=== PATIENT | female | born 1990 | race Two or more races ===

== ENCOUNTER 2022-08-09 14:35 | Emergency (ER) | payer OTHER ==
[~2022-08-09] VITALS: Ht 162.6 cm; Wt 77.3 kg
[2022-08-09] MEDS ORDERED: NIRM1TAB PO (14:45)
[2022-08-09] MEDS ORDERED: LAMI25TA PO (14:56)
[2022-08-09] MEDS ORDERED: ZOLO50TA PO (14:56)
[2022-08-09 18:05] LABS: EOS # 0.1 10^3/uL (0.0-0.5); HEMATOCRIT 38.6 % (36.0-47.0); HEMOGLOBIN 12.8 g/dl (12.0-15.5); LYMPH % 39.4 % (24.0-44.0); MEAN CORPUSCULAR HEMOGLOBIN 27.4 pg (27.0-33.0); MEAN CORPUSCULAR HGB CONC 33.2 g/dl (32.0-36.5); MEAN CORPUSCULAR VOLUME 82.7 fl (80.0-96.0); MONO # 0.3 10^3/uL (0.0-0.8); MONO % 5.7 % (2.0-8.0); NEUTROPHILS # 2.7 10^3/uL (1.5-8.5); NEUTROPHILS % 53.7 % (36.0-66.0); PLATELET COUNT, AUTOMATED 196 10^3/uL (150-450); RED BLOOD COUNT 4.67 10^6/uL (4.00-5.40); WHITE BLOOD COUNT 5.1 10^3/uL (4.0-10.0)
[2022-08-09 18:46] LABS: ALT/SGPT 20 U/L (12-78); BILIRUBIN,TOTAL 0.3 MG/DL (0.2-1.0); BLOOD UREA NITROGEN 8 MG/DL (7-18); CALCIUM LEVEL 8.6 MG/DL (8.5-10.1); CARBON DIOXIDE LEVEL 28 MEQ/L (21-32); CHLORIDE LEVEL 108 MEQ/L (98-107); CREATININE FOR GFR 0.82 MG/DL (0.55-1.30); GLOMERULAR FILTRATION RATE > 60.0 (>60); GLUCOSE, FASTING 89 MG/DL (70-100); POTASSIUM SERUM 3.7 MEQ/L (3.5-5.1); SODIUM LEVEL 141 MEQ/L (136-145); TOTAL PROTEIN 7.2 GM/DL (6.4-8.2)
[2022-08-09 19:47] VITALS: BP 124/82
[2022-08-09 20:03] LABS: HEPATITIS B CORE ANTIBODY IGM NEGATIVE (NEGATIVE); HEPATITIS B SURFACE ANTIGEN NEGATIVE (NEGATIVE); HEPATITIS C VIRUS ABY INDEX < 0.0 INDEX (<0.8)
== END 2022-08-09 19:49 | disposition home or self-care (01) ==
LOC: M ED 14:35
DX: R10.84 Generalized abdominal pain (principal); R19.7 Diarrhea, unspecified; Z86.16 Personal history of COVID-19; R51.9 Headache, unspecified; F60.3 Borderline personality disorder; Z80.0 Family history of malignant neoplasm of digestive organs; Z79.899 Other long term (current) drug therapy

== ENCOUNTER 2022-10-22 13:35 | Emergency (ER) | payer OTHER ==
[~2022-10-22] VITALS: Ht 162.6 cm; Wt 77.2 kg
[~2022-10-22 13:35] MED LIST: LAMI25TA PO; NIRM1TAB PO; ZOLO50TA PO
[2022-10-22] MEDS ORDERED: VENL37.598 (13:42)
[2022-10-22] MEDS ORDERED: LORazepam 1 MG TAB PO STA (14:19)
[2022-10-22 14:41] LABS: HEMATOCRIT 41.1 % (36.0-47.0); HEMOGLOBIN 13.5 g/dl (12.0-15.5); MEAN CORPUSCULAR HEMOGLOBIN 27.1 pg (27.0-33.0); MEAN CORPUSCULAR HGB CONC 32.8 g/dl (32.0-36.5); MEAN CORPUSCULAR VOLUME 82.4 fl (80.0-96.0); PLATELET COUNT, AUTOMATED 162 10^3/uL (150-450); RED BLOOD COUNT 4.99 10^6/uL (4.00-5.40); WHITE BLOOD COUNT 8.6 10^3/uL (4.0-10.0)
[2022-10-22] MEDS ORDERED: ONDANSETRON 4MG ORAL DISINTEGRATING TAB PO ONE (14:55)
[2022-10-22 15:13] LABS: ETHYL ALCOHOL (ETHANOL) 0.003 % (0.000-0.010)
[2022-10-22 15:14] LABS: ACETAMINOPHEN LEVEL < 2.0 UG/ML (10.0-20.0); BILIRUBIN,DIRECT 0.3 MG/DL (<0.4)
[2022-10-22 15:15] LABS: ALBUMIN 4.5 G/DL (3.2-5.2); ALKALINE PHOSPHATASE 78 U/L (46-116); ALT/SGPT 27 U/L (7.0-40); AST/SGOT 23 U/L (<34); BILIRUBIN,TOTAL 0.8 MG/DL (0.3-1.2); BLOOD UREA NITROGEN 13 MG/DL (9-23); CALCIUM LEVEL 9.6 MG/DL (8.5-10.1); CARBON DIOXIDE LEVEL 26 MMOL/L (20-31); CHLORIDE LEVEL 104 MMOL/L (98-107); CREATININE FOR GFR 0.73 MG/DL (0.55-1.30); GLOMERULAR FILTRATION RATE > 60.0 (>60); GLUCOSE, FASTING 91 MG/DL (60-100); SALICYLATE LEVEL < 3.0 MG/DL (<30); SODIUM LEVEL 139 MMOL/L (136-145); TOTAL PROTEIN 7.6 G/DL (5.7-8.2)
[2022-10-22 15:16] LABS: THYROID STIMULATING HORMONE 0.727 uIU/ML (0.55-4.78)
[2022-10-22 15:56] LABS: AMPHETAMINES LEVEL URINE NEGATIVE (NEGATIVE); BARBITURATES URINE NEGATIVE (NEGATIVE); BENZODIAZEPINES URINE NEGATIVE (NEGATIVE); COCAINE METABOLITE URINE NEGATIVE (NEGATIVE); METHADONE URINE NEGATIVE (NEGATIVE); OPIATES URINE NEGATIVE (NEGATIVE); PHENCYCLIDINE URINE NEGATIVE (NEGATIVE)
[2022-10-22 15:58] LABS: CANNABINOIDS URINE POSITIVE (NEGATIVE)
[2022-10-22] MEDS ORDERED: HYDR-3363 PO ×2 (17:14→17:16)
[2022-10-22] MEDS ORDERED: ONDA4TAB6 PO ×2 (17:14→17:16)
[2022-10-22 17:52] VITALS: BP 122/69
== END 2022-10-22 17:55 | disposition home or self-care (01) ==
LOC: M ED 15:01
DX: F41.8 Other specified anxiety disorders (principal); F31.9 Bipolar disorder, unspecified; Z79.899 Other long term (current) drug therapy

== ENCOUNTER 2023-12-13 08:45 | Emergency (ER) | payer OTHER, SELFPAY ==
[~2023-12-13] VITALS: Ht 162.6 cm; Wt 73.9 kg
[~2023-12-13 08:45] MED LIST changes: +HYDR-3363 PO; +ONDA4TAB6 PO; +VENL37.598
[2023-12-13 12:06] LABS: URINE PREG TEST NEGATIVE (NEGATIVE)
[2023-12-13 13:13] LABS: Trichomonas vaginalis (AMP) NOT DETECTED (NEGATIVE)
[2023-12-13 13:36] LABS: GC DNA AMPLIFICATION NEGATIVE (NEGATIVE)
[2023-12-13] MEDS ORDERED: METR-265 PO (13:57)
[2023-12-13 14:08] VITALS: BP 125/79; TEMP 97.8; O2SAT 100
== END 2023-12-13 14:10 | disposition home or self-care (01) ==
LOC: M ED 08:45
DX: N76.0 Acute vaginitis (principal); A63.0 Anogenital (venereal) warts; F17.200 Nicotine dependence, unspecified, uncomplicated; Z87.42 Personal history of other diseases of the female genital tract; Z88.5 Allergy status to narcotic agent; Z88.6 Allergy status to analgesic agent; Z91.040 Latex allergy status; Z79.2 Long term (current) use of antibiotics

== ENCOUNTER 2024-08-11 18:34 | Emergency (ER) | payer MEDICAID, OTHER ==
[~2024-08-11] VITALS: Ht 162.6 cm; Wt 80.3 kg
[~2024-08-11 18:34] MED LIST changes: +METR-265 PO; +ONDA-282 PO; -ONDA4TAB6 PO
[2024-08-11] MEDS ORDERED: prenatal (18:41)
[2024-08-11 19:16] LABS: BASO % 0.1 % (0.0-1.0); EOS % 0.5 % (0.0-3.0); HEMATOCRIT 38.3 % (36.0-47.0); HEMOGLOBIN 13.1 g/dl (12.0-15.5); LYMPH # 2.2 10^3/uL (1.5-5.0); LYMPH % 26.8 % (24.0-44.0); MEAN CORPUSCULAR HEMOGLOBIN 27.5 pg (27.0-33.0); MEAN CORPUSCULAR HGB CONC 34.2 g/dl (32.0-36.5); MEAN CORPUSCULAR VOLUME 80.5 fl (80.0-96.0); MONO # 0.6 10^3/uL (0.0-0.8); MONO % 7.6 % (2.0-8.0); NEUTROPHILS # 5.4 10^3/uL (1.5-8.5); NEUTROPHILS % 64.9 % (36.0-66.0); PLATELET COUNT, AUTOMATED 225 10^3/uL (150-450); RED BLOOD COUNT 4.76 10^6/uL (4.00-5.40); WHITE BLOOD COUNT 8.3 10^3/uL (4.0-10.0)
[2024-08-11 19:52] LABS: ALBUMIN 4.3 G/DL (3.2-5.2); ALKALINE PHOSPHATASE 66 U/L (35-104); ALT/SGPT 18 U/L (7.0-40); AST/SGOT 14 U/L (<34); BILIRUBIN,DIRECT 0.2 MG/DL (<0.4); BILIRUBIN,TOTAL 0.6 MG/DL (0.3-1.2); BLOOD UREA NITROGEN 10 MG/DL (9-23); CALCIUM LEVEL 10.4 MG/DL (8.5-10.1); CARBON DIOXIDE LEVEL 27 MMOL/L (20-31); CHLORIDE LEVEL 104 MMOL/L (98-107); CREATININE FOR GFR 0.73 MG/DL (0.55-1.30); GLOMERULAR FILTRATION RATE > 60.0 (>60); GLUCOSE, FASTING 85 MG/DL (60-100); POTASSIUM SERUM 3.7 MMOL/L (3.5-5.1); SODIUM LEVEL 138 MMOL/L (136-145); TOTAL PROTEIN 7.6 G/DL (5.7-8.2)
[2024-08-11 20:13] LABS: HCG, SERUM QUANTITATIVE 24926.2 MIU/ML (<4.2)
[2024-08-11] MEDS: ONDANSETRON 4MG 2ML VIAL IV ONE (20:50)
[2024-08-11] MEDS ORDERED: ONDA-282 PO (22:05)
[2024-08-11] MEDS ORDERED: MACR100C43 PO (22:05)
[2024-08-11 22:06] VITALS: BP 119/73; TEMP 98.6; O2SAT 17
[2024-08-11] MEDS: NITROFURANTOIN (MACROBID) 100 MG CAP PO ONE (22:06)
== END 2024-08-11 22:09 | disposition home or self-care (01) ==
LOC: M ED 18:34
DX: O21.9 Vomiting of pregnancy, unspecified (principal); O23.41 Unspecified infection of urinary tract in pregnancy, first trimester; N39.0 Urinary tract infection, site not specified; Z88.6 Allergy status to analgesic agent; Z88.5 Allergy status to narcotic agent; Z91.040 Latex allergy status; Z3A.01 Less than 8 weeks gestation of pregnancy
CPT/HCPCS: 76801; 76817; 80048; 80076; 81001; 84702; 85025; 87086; 93976; 96374; 99284; J2405

== ENCOUNTER 2024-08-14 11:01 | Emergency (ER) | payer MEDICAID ==
[~2024-08-14] VITALS: Ht 162.6 cm; Wt 78.4 kg
[~2024-08-14 11:01] MED LIST changes: +MACR100C43 PO; +prenatal
[2024-08-14 11:08] VITALS: BP 134/85; TEMP 96.2; O2SAT 100
== END 2024-08-14 13:46 | disposition left against medical advice (07) ==
LOC: M ED 11:01
DX: Z53.21 Procedure and treatment not carried out due to patient leaving prior to being seen by health care provider (principal)

== ENCOUNTER → 2024-09-11 | Outpatient (CLI) | payer MEDICAID, OTHER ==
[2024-09-11 17:46] LABS: HEMATOCRIT 34.9 % (36.0-47.0); HEMOGLOBIN 11.7 g/dl (12.0-15.5); MEAN CORPUSCULAR HEMOGLOBIN 27.7 pg (27.0-33.0); MEAN CORPUSCULAR HGB CONC 33.5 g/dl (32.0-36.5); MEAN CORPUSCULAR VOLUME 82.5 fl (80.0-96.0); PLATELET COUNT, AUTOMATED 200 10^3/uL (150-450); RED BLOOD COUNT 4.23 10^6/uL (4.00-5.40); WHITE BLOOD COUNT 7.6 10^3/uL (4.0-10.0)
[2024-09-11 18:44] LABS: HIV 1&2 SCREEN NEGATIVE (NEGATIVE)
[2024-09-11 18:51] LABS: HEPATITIS C VIRUS ABY INDEX 0.32 INDEX (<0.8)
[2024-09-11 19:24] LABS: GC DNA AMPLIFICATION NEGATIVE (NEGATIVE)
== END ==
LOC: M PLALAB 14:11
PROVIDERS: ATTEND Nurse Practitioner Family
DX: Z34.81 Encounter for supervision of other normal pregnancy, first trimester (principal)

== ENCOUNTER → 2024-09-27 | Outpatient (CLI) | payer MEDICAID, OTHER ==
[2024-09-27 16:30] LABS: HEMOGLOBIN 12.6 g/dl (12.0-15.5); MEAN CORPUSCULAR HEMOGLOBIN 28.3 pg (27.0-33.0); MEAN CORPUSCULAR HGB CONC 34.1 g/dl (32.0-36.5); PLATELET COUNT, AUTOMATED 193 10^3/uL (150-450); RED BLOOD COUNT 4.46 10^6/uL (4.00-5.40); WHITE BLOOD COUNT 9.1 10^3/uL (4.0-10.0)
[2024-09-27 16:51] LABS: URIC ACID 3.5 MG/DL (3.1-7.8)
[2024-09-27 16:53] LABS: LDH LACTATE DEHYDROGENASE 169 U/L (120-246); TOTAL PROTEIN,RANDOM URINE 19.7 MG/DL (0.0-14.0)
[2024-09-27 16:54] LABS: ALT/SGPT 49 U/L (7.0-40); AST/SGOT 31 U/L (<34); BILIRUBIN,TOTAL 0.4 MG/DL (0.3-1.2); CREATININE FOR GFR 0.59 MG/DL (0.55-1.30); GLOMERULAR FILTRATION RATE > 60.0 (>60)
== END ==
LOC: M PLALAB 12:59
PROVIDERS: ATTEND Nurse Practitioner Family
DX: I10 Essential (primary) hypertension (principal)

== ENCOUNTER → 2024-10-12 | Outpatient (CLI) | payer OTHER | LOC: M PLALAB 16:42 | PROVIDERS: ATTEND Nurse Practitioner Family | DX: Z34.81 Encounter for supervision of other normal pregnancy, first trimester (principal) ==

== ENCOUNTER → 2024-11-15 | Outpatient (CLI) | payer OTHER | LOC: M RAD 11:39 | PROVIDERS: ATTEND Nurse Practitioner Family | DX: Z34.80 Encounter for supervision of other normal pregnancy, unspecified trimester (principal); Z3A.19 19 weeks gestation of pregnancy ==

== ENCOUNTER → 2024-12-20 | Outpatient (CLI) | payer OTHER | LOC: M WHC 14:35 | PROVIDERS: ATTEND Nurse Practitioner Family | DX: Z34.80 Encounter for supervision of other normal pregnancy, unspecified trimester (principal) ==

== ENCOUNTER → 2025-01-11 | Outpatient (CLI) | payer OTHER ==
[2025-01-11 17:07] LABS: HEMATOCRIT 31.5 % (36.0-47.0); HEMOGLOBIN 10.4 g/dl (12.0-15.5); MEAN CORPUSCULAR VOLUME 84.7 fl (80.0-96.0); PLATELET COUNT, AUTOMATED 156 10^3/uL (150-450); RED BLOOD COUNT 3.72 10^6/uL (4.00-5.40); WHITE BLOOD COUNT 8.4 10^3/uL (4.0-10.0)
[2025-01-11 17:33] LABS: GLUCOSE CHALLENGE TEST 1 HOUR 82 MG/DL (LESS THAN 140)
[2025-01-11 18:03] LABS: HIV 1&2 SCREEN NEGATIVE (NEGATIVE)
[2025-01-11 18:10] LABS: Trichomonas vaginalis (AMP) NOT DETECTED (NEGATIVE)
[2025-01-11 18:34] LABS: GC DNA AMPLIFICATION NEGATIVE (NEGATIVE)
== END ==
LOC: M PLALAB 14:15
PROVIDERS: ATTEND Nurse Practitioner Family
DX: Z34.80 Encounter for supervision of other normal pregnancy, unspecified trimester (principal)

== ENCOUNTER → 2025-02-28 | Outpatient (CLI) | payer OTHER ==
[2025-02-28 18:43] LABS: HEMATOCRIT 34.8 % (36.0-47.0); HEMOGLOBIN 11.3 g/dl (12.0-15.5); MEAN CORPUSCULAR HEMOGLOBIN 28.4 pg (27.0-33.0); MEAN CORPUSCULAR HGB CONC 32.5 g/dl (32.0-36.5); MEAN CORPUSCULAR VOLUME 87.4 fl (80.0-96.0); PLATELET COUNT, AUTOMATED 154 10^3/uL (150-450); RED BLOOD COUNT 3.98 10^6/uL (4.00-5.40)
[2025-02-28 19:15] LABS: FERRITIN 15.3 NG/ML (7.3-270.7)
== END ==
LOC: M PLALAB 15:17
PROVIDERS: ATTEND Nurse Practitioner Family
DX: O99.013 Anemia complicating pregnancy, third trimester (principal); D64.9 Anemia, unspecified; Z3A.00 Weeks of gestation of pregnancy not specified

== ENCOUNTER → 2025-09-11 | Outpatient (REF) | payer MEDICAID, OTHER ==
[~2025-09-11] MED LIST changes: +IBUP80TA PO
[2025-09-13 17:27] LABS: HPV APTIMA Not Detected (Not Detected)
== END ==
LOC: M SFHCWAGY 15:00
PROVIDERS: ATTEND Advanced Practice Midwife
DX: Z12.4 Encounter for screening for malignant neoplasm of cervix (principal)

== ENCOUNTER 2025-10-06 04:13 | Emergency (ER) | payer MEDICAID ==
[~2025-10-06] VITALS: Ht 162.6 cm; Wt 86.4 kg
[2025-10-06] MEDS ORDERED: ONDANSETRON 4MG/2ML VIAL IV ONE (06:15)
[2025-10-06] MEDS ORDERED: OSEL75CA PO (06:19)
[2025-10-06] MEDS ORDERED: ONDA-282 PO (06:20)
[2025-10-06] MEDS: NS (Normal Saline) 0.9% 1,000 ML IV ONE (06:36)
[2025-10-06] MEDS: OSELTAMIVIR PHOSPHATE 75 MG CAP PO ONE (06:36)
[2025-10-06] MEDS: diphenhydrAMINE 50 MG/ML VIAL IV ONE (06:36)
[2025-10-06] MEDS: ACETAMINOPHEN 500 MG TAB PO ONE (06:37)
[2025-10-06 06:50] LABS: BASO # 0.0 10^3/uL (0.0-0.2); BASO % 0.2 % (0.0-1.0); EOS # 0.2 10^3/uL (0.0-0.5); EOS % 2.5 % (0.0-3.0); LYMPH # 0.7 10^3/uL (1.5-5.0); LYMPH % 10.1 % (24.0-44.0); MONO # 0.5 10^3/uL (0.0-0.8); MONO % 8.3 % (2.0-8.0); NEUTROPHILS # 5.1 10^3/uL (1.5-8.5); NEUTROPHILS % 78.7 % (36.0-66.0); PLATELET COUNT, AUTOMATED 187 10^3/uL (150-450)
[2025-10-06] MEDS: KETOROLAC 30 MG/ML 1 ML VIAL IV ONE (06:50)
[2025-10-06 07:13] LABS: CK-MB VALUE MASS < 1.0 NG/ML (<3.6)
[2025-10-06 07:14] LABS: CALCIUM LEVEL 9.0 MG/DL (8.5-10.1); CARBON DIOXIDE LEVEL 26 MMOL/L (20-31); CHLORIDE LEVEL 106 MMOL/L (98-107); CREATININE FOR GFR 0.84 MG/DL (0.55-1.30); GLOMERULAR FILTRATION RATE > 90.0 (>60); POTASSIUM SERUM 3.5 MMOL/L (3.5-5.1); SODIUM LEVEL 141 MMOL/L (136-145)
[2025-10-06 07:15] LABS: CPK CREATINE PHOSPHOKINASE 161 U/L (34-145)
[2025-10-06] MEDS ORDERED: BENA25CA4 PO (08:16)
[2025-10-06] MEDS: ONDANSETRON 4MG/2ML VIAL IV ONE (09:45)
[2025-10-06 10:15] VITALS: BP 119/70; TEMP 98.2
[2025-10-06 10:18] VITALS: O2SAT 98
[2025-10-06] MEDS ORDERED: OSEL75CA2 PO (10:34)
== END 2025-10-06 10:45 | disposition home or self-care (01) ==
LOC: M ED 04:13
DX: J09.X2 Influenza due to identified novel influenza A virus with other respiratory manifestations (principal); Z20.9 Contact with and (suspected) exposure to unspecified communicable disease; Z88.5 Allergy status to narcotic agent; Z91.018 Allergy to other foods; Z91.040 Latex allergy status
CPT/HCPCS: 71046; 80048; 82550; 82553; 84484; 85025; 87486; 87581; 87633; 87798; 93005; 96361; 96374; 96375; 99284; J1200; J1885; J2405; J2765